=== PATIENT | female | born 1965 | race Caucasian/White ===

== ENCOUNTER 2018-11-05 08:55 | Day surgery (SDC) | payer OTHER ==
[~2018-11-05] VITALS: Ht 162.6 cm; Wt 110.2 kg
[~2018-11-05 08:55] MED LIST: METO25ER PO; NAPR500 PO; OMEPRAZOLE MAGN20 MG PO
--- NOTE | 2018-11-05 09:52 | NUR ---
Surgical site prepped with 2% Chlorhexidine cloth wipe. History, Chart, Medications and Allergies reviewed before start of procedure.Lungs clear T/O to Auscultation. Patient confirms NPO status and agrees with scheduled surgery EXCEPT METOPROLOL THIS AM WITH A SIP OF WATER. Patient reports completing Chlorhexadine shower X2 prior to admission to hospital. ALL BELONGIGNS PLACED UNDER BED.
--- NOTE | 2018-11-05 17:09 | NUR ---
SHIFT SUMMARY PT A&OX4, VSS, S/P L TKA, AQUACEL CDI, POLAR NUZHAT, TEDS, SCDS ON. PAIN MANAGED WITH 10 MG OXY, TORADOL, TYLENOL. DEBRA PO, DENIES N&V. REP SOME NUMBNESS IN BLE, STAND/PIVOT TO CHAIR. WILL CTM & TX PRN UNTIL REPORT GIVEN TO ONCKALPANA CRONIN RN.
[2018-11-06 06:01] LABS: BASOPHILS ABSOLUTE AUTO 0.02 K/mm3 (0.00-0.23); BASOPHILS PERCENT AUTO 0 % (0-2); EOSINOPHILS PERCENT AUTO 0 % (0-6); Hematocrit 32.6 % (33.0-51.0); Hemoglobin 10.8 g/dL (11.5-16.0); IMMATURE GRAN ABSOLUTE AUTO 0.09 K/mm3 (0.00-0.10); IMMATURE GRAN PERCENT AUTO 1 % (0-1); LYMPHOCYTES ABSOLUTE AUTO 1.48 K/mm3 (0.84-5.20); LYMPHOCYTES PERCENT AUTO 8 % (21-46); MONOCYTES ABSOLUTE AUTO 1.29 K/mm3 (0.16-1.47); MONOCYTES PERCENT AUTO 7 % (4-13); Mean Corpuscular HGB 31.2 pg (26.0-34.0); Mean Corpuscular HGB Conc 33.1 g/dL (31.5-36.5); Mean Corpuscular Volume 94 fL (80-100); NEUTROPHILS ABSOLUTE AUTO 15.18 K/mm3 (1.96-9.15); NEUTROPHILS PERCENT AUTO 84 % (41-73); Platelet Count 261 K/mm3 (150-400); RDW Coefficient Variation 12.2 % (11.7-14.2); Red Blood Cell Count 3.46 M/mm3 (3.80-5.20); White Blood Cell Count 18.06 K/mm3 (4.00-11.30)
[2018-11-06 06:27] LABS: Anion Gap 5 mmol/L (6-16); Blood Urea Nitrogen 13 mg/dL (8-24); Bun/Creatinine Ratio 17.3 (12.0-20.0); CO2, Blood 26 mmol/L (21-32); Calcium, Blood 8.5 mg/dL (8.5-10.1); Chloride, Blood 104 mmol/L (98-108); Creatinine, Blood 0.75 mg/dL (0.40-1.00); Glomerular Filtration Rate >60 (60-); Glucose, Blood 125 mg/dL (70-99); Potassium, Blood 4.3 mmol/L (3.5-5.5); Sodium, Blood 135 mmol/L (136-145)
--- NOTE | 2018-11-06 06:27 | NUR ---
SHIFT SUMMARY PT A&O X4 T/O SHIFT. POD#1 L TKA; DRESSING TO ANTERIOR L KNEE CDI. CRYOTHERAPY TO L KNEE TOLERATED; PAIN MANGED PER EMAR. PT EDUCATED ON USE OF IV MEDICATION FOR BREAK-THROUGH PAIN, PT DECLINED USE FOR PAIN MANGEMENT. DIVINA'S TO BLE'S; EDUCATION ON DVT RISKS AND PREVENTION, PT REFUSED SCD'S. TO BLE'S DURING NIGHT. SL; TOLERATING PO INTAKE. UP TO TOILET WITH FWW, GB AND SBA. PT REPORTS DOING EXERCISES FROM PT. PPP UNCHANGED T/O SHIFT.PT DENIES N/T IN EXT; ALL EXT PWD. SL CLEAR; PT DENIES SOB, AND CP T/O SHIFT. SIDE [id number] FOR SAFETY. CALL LIGHT IN REACH; PT DEMONSTRATES USE.
[2018-11-06] MEDS ORDERED: ONDA4ODT MM (12:58)
[2018-11-06] MEDS ORDERED: XARELTO10 MG PO (13:00)
[2018-11-06] MEDS ORDERED: Percocet 5-3251 EACH PO (13:01)
--- NOTE | 2018-11-06 14:02 | NUR ---
11/06/18 1402 Felicita Austin VERIFICATIONS: EDIT CHART.
--- NOTE | 2018-11-06 14:18 | NUR ---
DISCHARGE SUMMARY PT A&OX4, VSS, LEFT VIA WC WITH GAMBLING BOX PERSON TO GO HOME WITH MOTHER, WITH ALL PERSONAL POSSESSIONS, INCLUDING DISCHARGE PACKET, 1 NARC SCRIPT, 1 XARELTO SCRIPT, 2 AQUACEL DRESSINGS. DISCHARGE INSTRUCTIONS PROVIDED. PT REP UNDERSTANDING THOSE INSTRUCTIONS INCLUDING PHYSICALTHERAPY, EXERCISES, DRESSING CHANGES ON MONDAYS UNTIL FU WITH SURGEON 2 WKS, SHOWER WITH AQUACEL ON OKAY, NO TUB/JACUZZI, NO DRIVING UNTIL RELEASED FROM , NO DRIVING WHILE TAKING NARCS. IV DC'D.
== END 2018-11-06 13:24 | disposition home or self-care (01) ==
LOC: ORSCMMR 08:55 → ORD 10:45 → ORSCMMR 10:45 → SURS 13:10 → ORSCMMR 11-06 13:24
PROVIDERS: Orthopaedic Surgery
PROC: 0SRD0JA Replacement of Left Knee Joint with Synthetic Substitute, Uncemented, Open Approach (ICD-10-PCS; principal; 2018-11-05 10:45)
DX: M17.12 Unilateral primary osteoarthritis, left knee (principal); Z01.818 Encounter for other preprocedural examination; I10 Essential (primary) hypertension; Z87.891 Personal history of nicotine dependence; E66.01 Morbid (severe) obesity due to excess calories; Z68.41 Body mass index [BMI] 40.0-44.9, adult; Z79.899 Other long term (current) drug therapy
CPT/HCPCS: 36415; 73560-LT; 80048; 85025; 86850; 86900; 86901; 88300; 97110; 97116; 97162; 97530; C1776; J0171; J0690; J0735; J1100; J1885; J2250; J2405; J2795; J3010; J7120